=== PATIENT | male | born 1980 | race Caucasian/White ===

== ENCOUNTER → 2022-04-19 06:54 | Outpatient (CLI) | payer OTHER, SELFPAY | PROVIDERS: PCP Family Medicine; Visit Provider Nurse Practitioner Family | DX: Z87.891 Personal history of nicotine dependence (principal); I10 Essential (primary) hypertension; E78.1 Pure hyperglyceridemia; I63.9 Cerebral infarction, unspecified | CPT/HCPCS: 94762 ==

== ENCOUNTER → 2022-05-19 11:57 | Outpatient (CLI) | payer OTHER, SELFPAY | PROVIDERS: PCP Family Medicine; Visit Provider Nurse Practitioner Family | DX: I10 Essential (primary) hypertension (principal); R46.89 Other symptoms and signs involving appearance and behavior; I63.89 Other cerebral infarction | CPT/HCPCS: 93225; 93226 ==

== ENCOUNTER → 2022-05-23 08:46 | Outpatient (CLI) | payer OTHER, SELFPAY ==
[2022-05-23 09:26] LABS: Basophils # 0.2 K/mm3 (0-0.2); Basophils % 3.4 % (0.1-2.0); Eosinophils # 0.2 K/mm3 (0.0-0.4); Eosinophils % 2.6 % (0.1-12.0); Hematocrit 45.1 % (42.0-52.0); Hemoglobin 14.9 g/dL (14.1-18.0); Lymphocytes # 2.2 K/mm3 (0.7-4.5); Lymphocytes % 34.2 % (10-50); Mean Corpuscular Hemoglobin 29.1 pg (27.0-31.2); Mean Corpuscular Volume 88.1 fl (80-94); Mean Platelet Volume 9.1 fl (7.4-10.4); Monocytes # 0.5 K/mm3 (0.1-1.0); Monocytes % 8.6 % (1.7-9.3); Neutrophils # 3.2 K/mm3 (1.8-7.8); Neutrophils % 51.2 % (37.0-80.0); Platelet Count 255 K/mm3 (142-424); Red Blood Count 5.12 M/mm3 (4.60-6.20); White Blood Count 6.3 K/mm3 (4.8-10.8)
[2022-05-23 10:05] LABS: Alanine Aminotransferase 41 U/L (12-78); Albumin Level 4.7 g/dl (3.5-5.0); Albumin/Globulin Ratio 1.8 (1.1-1.8); Alkaline Phosphatase 47 U/L (38-126); Anion Gap 12.7 mEq/L (5-15); Aspartate Amino Transferase 40 U/L (17-59); Bilirubin,Total 1.1 mg/dl (0.2-1.3); Blood Urea Nitrogen 18 mg/dl (9-20); Calcium 9.7 mg/dl (8.4-10.2); Carbon Dioxide 28 mmol/L (22.0-30.0); Chloride 104 mmol/L (98-107); Chol/HDL Ratio 2.2 (1-3.5); Cholesterol 125 mg/dl (140-200); Estimated Glomerular Filt Rate 66 ml/min (>60); GFR (African American) 80 ML/MIN (>60); Globulin 2.6 g/dL (1.3-3.2); Glucose 94 mg/dl (74-100); HDL Cholesterol 58 mg/dl (40-60); Potassium 4.7 mmoL/L (3.5-5.1); Sodium 140 mmol/L (136-145); Total Protein,Serum 7.3 g/dl (6.3-8.2); Triglycerides 99 mg/dl (30-150); VLDL Cholesterol 20 mg/dL (0-40)
[2022-05-23 10:27] LABS: Direct LDL Cholesterol 30.71 mg/dL (100-129)
[2022-05-23 10:36] LABS: Thyroid Stimulating Hormone 1.97 uIU/mL (0.465-4.68)
[2022-05-23 11:11] LABS: Vitamin B12 955 pg/mL (239-931)
[2022-05-24 08:37] LABS: Homocyst(e)ine 18.7 umol/L (0.0-14.5)
== END ==
PROVIDERS: PCP Family Medicine; Visit Provider Nurse Practitioner Family
DX: E78.1 Pure hyperglyceridemia (principal); I10 Essential (primary) hypertension; I63.9 Cerebral infarction, unspecified; Z87.891 Personal history of nicotine dependence
CPT/HCPCS: 36415; 80053; 80061; 82607; 82746; 83090; 84443; 85025

== ENCOUNTER → 2022-06-09 11:41 | Outpatient (CLI) | payer OTHER, SELFPAY | PROVIDERS: PCP Family Medicine; Visit Provider Nurse Practitioner Family | DX: I10 Essential (primary) hypertension (principal); R46.89 Other symptoms and signs involving appearance and behavior; G93.40 Encephalopathy, unspecified; I63.9 Cerebral infarction, unspecified | CPT/HCPCS: 93270 ==

== ENCOUNTER → 2022-10-25 14:03 | Outpatient (CLI) | payer OTHER, SELFPAY ==
[2022-10-25 14:23] LABS: Basophils # 0.1 K/mm3 (0-0.2); Basophils % 0.9 % (0.1-2.0); Eosinophils # 0.4 K/mm3 (0.0-0.4); Eosinophils % 6.2 % (0.1-12.0); Hematocrit 44.2 % (42.0-52.0); Hemoglobin 14.8 g/dL (14.1-18.0); Lymphocytes % 34.6 % (10-50); Mean Corpuscular HGB Conc 33.4 g/dL (31.8-35.4); Mean Corpuscular Hemoglobin 29.6 pg (27.0-31.2); Mean Corpuscular Volume 88.6 fl (80-94); Mean Platelet Volume 8.6 fl (7.4-10.4); Monocytes # 0.6 K/mm3 (0.1-1.0); Monocytes % 9.9 % (1.7-9.3); Neutrophils # 2.7 K/mm3 (1.8-7.8); Neutrophils % 48.3 % (37.0-80.0); Platelet Count 236 K/mm3 (142-424); Red Blood Count 4.99 M/mm3 (4.60-6.20); Red Cell Distribution Width 13.2 % (11.5-17.5); White Blood Count 5.6 K/mm3 (4.8-10.8)
[2022-10-25 14:39] LABS: Ammonia 11 umol/L (9-30); INR 0.96 (0.9-1.1); Prothrombin Time 10.4 seconds (10.1-12.5)
[2022-10-25 15:33] LABS: Alanine Aminotransferase 38 U/L (12-78); Albumin Level 4.4 g/dl (3.5-5.0); Albumin/Globulin Ratio 1.8 (1.1-1.8); Alkaline Phosphatase 41 U/L (38-126); Anion Gap 16.2 mEq/L (5-15); Aspartate Amino Transferase 38 U/L (17-59); Bilirubin,Total 1.2 mg/dl (0.2-1.3); Blood Urea Nitrogen 18 mg/dl (9-20); Calcium 8.8 mg/dl (8.4-10.2); Carbon Dioxide 26 mmol/L (22.0-30.0); Chloride 101 mmol/L (98-107); Estimated Glomerular Filt Rate 81 ml/min (>60); GFR (African American) 98 ML/MIN (>60); Globulin 2.4 g/dL (1.3-3.2); Glucose 108 mg/dl (74-100); Potassium 4.2 mmoL/L (3.5-5.1); Sodium 139 mmol/L (136-145); Total Protein,Serum 6.8 g/dl (6.3-8.2)
== END ==
PROVIDERS: PCP Family Medicine; Visit Provider Nurse Practitioner Family
DX: R46.89 Other symptoms and signs involving appearance and behavior (principal); Z51.81 Encounter for therapeutic drug level monitoring
CPT/HCPCS: 36415; 80053; 82140; 85025; 85610

== ENCOUNTER → 2024-12-11 06:46 | Outpatient (CLI) | payer BC, SELFPAY ==
--- OUTSIDE RECORDS SUMMARY | 2024-10-17 06:00 | XMS_ITS | Encounter Summary ---
Author Organization [employer] ([place], [place], [place], [place]) Address [address] [place] [address] Care Team Providers Care Loom Doffer Name Role Phone Diego Perez MD Primary Care Provider [phone] Beth Montiel APRN Unavailable [phone] John Maya DO Unavailable [phone] Ernie Tsai MD Unavailable Reason for Visit * Reason Comments LOOP RECORDER Encounter Details Date Type Department Care Team (Late st Contact Info) Description 10/17/2024 6:00 AM EDT Clinical Support [facility] Electrophysiology [address] [place] [address] Ernie Tsai MD [address] [place] [address] [address] [place] [address] Encounter for adjustment or management of cardiac device (Primary Dx); Cryptogenic stroke (HCC); Implantable loop recorder present Social History Tobacco Use Types Packs/Day Years Used Date Smoking Tobacco: Former Cigarettes 1 10 Passive Smoke Exposure: Never Smokeless Tobacco: Never Alcohol Use Standard Drinks/Week Comments Yes 0 (1 standard drink = 0.6 oz pur e alcohol) socially Family and Community Support Answer Wade e Recorded Help with Day to Day Activities Not on file 06/16/2023 Feeling Lonely or Isolated Not on file 06/16 Educational Attainment Answer Date Lupillo rded Speak language other than Liberian at home Not on file 06/16/2023 Want help with school or training Not on file 06/16/2023 Substance Use Answer Date Recorded Used prescription meds for non-medical reasons N ot on file 06/16/2023 Used illegal drugs past 12 months Not on file 06/16/2023 Sex and Gender Information Value Date Recorded Sex Assigned at Male 12/01/2021 10:23 PM CDT Legal Sex Male 6:41 PM CDT Gender Identity Male 12/01/2021 10:23 PM CDT Sexual Orientation Not on file documented as of this encounter Plan of Treatment Upcoming Encounters Date Type Department Care Team (Late st Contact Info) Description 12/19/2024 10:45 AM EDT Office Visit [facility] Cardiology - [place] [address] [place] [address] John Maya [address] [place] [address] documented as of this encounter Visit Diagnoses Diagnosis Encounter for adjustment or management of cardiac device- Primary Cryptogenic stroke (HCC) Implantable loop recorder present documented in this encounter Care Teams Loom Doffer Relationship Specialty Start Date End Date Diego Perez MD [address] [place], [place] [id number] PCP - General Family Medicine 12/12/22 Beth Montiel, HIGHWAY MAINTENANCE CREW WORKER [address] [place] [address] Nurse Practitioner 12/12/22 John Maya DO [address] [place] [address] House Superintendent Cardiology 02/23/24 Ernie Tsai MD [address] [facility] [address] [place] [address] House Superintendent Electrophysiology 02/23/24 documented as of this encounter
--- OUTSIDE RECORDS SUMMARY | 2024-11-18 18:00 | XMS_ITS | Encounter Summary ---
Author Organization [employer] ([place], [place], [place], [place]) Address [address] [place] [address] Care Team Providers Care Quarry Plug And Feather Driller Name Role Phone Diego Perez MD Primary Care Provider [phone] Beth Montiel APRN Unavailable [phone] John Maya DO Unavailable [phone] Ernie Tsai MD Unavailable Reason for Visit * Reason Comments LOOP RECORDER Encounter Details Date Type Department Care Team (Late st Contact Info) Description 11/18/2024 6:00 PM EDT Clinical Support [facility] Electrophysiology [address] [place] [address] Ernie Tsai MD [address] [place] [address] [address] [place] [address] Encounter for adjustment or management [...] Date Lupillo rded Speak language other than [place] at home Not on file 06/16/2023 Want [...] Description 12/19/2024 10:45 AM EDT Office Visit [facility] Cardiology - [place] [address] [place] [address] John Maya [address] [place] [address] documented as of this encounter Visit Diagnoses Diagnosis Encounter for adjustment or management of cardiac device- Primary Cryptogenic stroke (HCC) Implantable loop recorder present documented in this encounter Care Teams Quarry Plug And Feather Driller Relationship Specialty Start Date End Date Diego Perez MD [address] [place], [place] [id number] PCP - General Family Medicine 12/12/22 Beth Montiel, WORKDAY MANAGER [address] [place] [address] Nurse Practitioner 12/12/22 John Maya DO [address] [place] [address] Tile And Marble Setter Cardiology 02/23/24 Ernie Tsai MD 1401 [facility] [address] [place] [address] Tile And Marble Setter Electrophysiology 02/23/24 documented as of this encounter
--- OUTSIDE RECORDS SUMMARY | 2024-12-11 06:48 | XMS_ITS | Encounter Summary ---
Author Organization [employer] ([place], [place], [place], [place]) Address [address] [place] [address] Care Team Providers Care Contact Representative Name Role Phone Diego Perez MD Primary Care Provider [phone] Diego Perez MD Primary Care Provider [phone] Beth Montiel APRN Unavailable [phone] John Maya DO Unavailable [phone] Ernie Tsai MD Unavailable Encounter Details Date Type Department Care Team (Late st Contact Info) Description 01/14/2019 Transcribed Document [facility] [place] [address] [place] [address] ProviderUmang MD [address] [place] [address] Social History Tobacco Use Types Packs/Day Years Used Date Smoking Tobacco: Never Assessed Sex and Gender Information Value Date Recorded Sex Assigned at Male 12/01/2021 10:23 PM CDT Legal Sex Male 6:41 PM CDT Gender Identity Male 12/01/2021 10:23 PM CDT Sexual Orientation Not on file documented as of this encounter Miscellaneous Notes * Cerner Conversion Note - Historical ProviderMD - 01/14/2019 1:32 PM CDT DATE OF PROCEDURE:01/14/2019 PREOPERATIVE DIAGNOSIS(ES): Right renal stone. POSTOPERATIVE DIAGNOSIS(ES): Right renal stone. PROCEDURE: Right extracorporeal shock wave lithotripsy. SURGEON: Truman Saez M.D. ANESTHESIA: General. BLOOD LOSS: None. COMPLICATIONS: None. SPECIMENS: None. OPERATIVE FINDINGS: Right renal stone with good fragmentation by ESWL. INDICATIONS FOR PROCEDURE: A 38-year-old male with right renal stone. He presents for definitive stone treatment by ESWL. DESCRIPTION OF PROCEDURE: Patient was correctly identified in preoperative holding area. Informed consent obtained after all risks and benefits were reviewed with the patient. He was taken to procedure room and positioned in supine position. All pressure points padded. Proper time-out procedure completed. Preoperative antibiotics being given. Anesthesia had been induced. He was repositioned over the lithotripter table to position the stone within the lithotripter focus using biplanar fluoroscopy. A total of 2400 shocks were administered using escalating voltage. Good fragmentation was identified by fluoroscopy intraoperatively. DISPOSITION: Patient tolerated the procedure well. He was taken to recovery room in stable condition. He was discharged home with instructions for outpatient followup. Truman Saez M.D. Dict: 01/14/2019 13:32:23 Trans: 01/14/2019 14:20:52 CC1: Truman Saez M.D. Electronically signed by Francisco [facility] Conversion Roll Examiner Cerner at 09/18/2022 6:17 PM CDT documented in this encounter Plan of Treatment Upcoming Encounters Date Type Department Care Team (Late st Contact Info) Description 12/19/2024 10:45 AM EDT Office Visit [facility] Cardiology [address] [address] John Maya DO [address] [place] [address] documented as of this encounter Visit Diagnoses Not on filedocumented in this encounter Care Teams Contact Representative Relationship Specialty Start Date End Date Diego Perez MD [address] [place] [address] PCP - General Family Medicine 04/04/22 12/11/22 Diego Perez MD [address] [place] [address] PCP - General Family Medicine 12/12/22 Beth Montiel, ADRIENNE [address] [place] [address] Nurse Practitioner 12/12/22 John Maya DO [address] [place] [address] Truck Bracer Cardiology 02/23/24 Ernie Tsai MD 14[address] [facility] [place] [address] Truck Bracer Electrophysiology 02/23/24 documented as of this encounter
--- OUTSIDE RECORDS SUMMARY | 2024-12-11 06:48 | XMS_ITS | Encounter Summary ---
Author Organization [employer] ([place], [place], [place], [place]) Address [address] [place] [address] Care Team Providers Care Executive Personal Assistant Name Role Phone Diego Perez MD Primary Care Provider [phone] Diego Perez MD Primary Care Provider [phone] Beth Montiel APRN Unavailable [phone] John Maya DO Unavailable [phone] Ernie Tsai MD Unavailable Encounter Details Date Type Department Care Team (Late st Contact Info) Description 01/14/2019 Transcribed Document [facility] Family Medicine [address] [place] [address] ProviderUmang MD [address] [place] [address] Social History Tobacco Use Types Packs/Day Years Used Date Smoking Tobacco: Never Assessed Sex and Gender Information Value Date Recorded Sex Assigned at Male 12/01/2021 10:23 PM CDT Legal Sex Male 6:41 PM CDT Gender Identity Male 12/01/2021 10:23 PM CDT Sexual Orientation Not on file documented as of this encounter Miscellaneous Notes * Cerner Conversion Note - Umang ProviderMD - 01/14/2019 10:09 AM CDT [facility] Main OR Preop Summary Primary Physician: JOHN ASHLEY MD Finalized Date/Time: 01/14/19 13:51:58 Pt. Name: ROBERT ROBERTSON Jose/Sex: 1980 Male Med Rec #: [id number] Physician: JOHN ASHLEY MD Financial #: [id number] Pt. Type: O Room/Bed: /7 Admit/Disch: 01/14/19 06:07:00 - Institution: [facility] PreOp Case Times Entry 1 In Preop 01/14/19 06:29:00 Ready for Holding n/a Room Patient Ready for 01/14/19 09:05:00 Surgery Patient Out of Preop 01/14/19 09:56:00 Patient Out of n/a Holding Room Last Modified By: Ellen Cr, Nurse Model Maker Plaster 01/14/19 13:51:55 [facility] PreOp Case Times Audit 01/14/19 13:51:55 Neurophysiology Tech: [email or web address] Modifier: [id number] <+> 1 Patient Out of Preop Finalized By: Ellen Cr, Nurse Director Cardiology Signatures Signed By: Ellen Cr Nurse Model Maker Plaster 01/14/19 13:51 Electronically signed by Francisco [facility] Conversion Nature Photographer Cerner at 09/18/2022 6:11 PM CDT documented in this encounter Plan of Treatment Upcoming Encounters Date Type Department Care Team (Late st Contact Info) Description 12/19/2024 10:45 AM EDT Office Visit [facility] Cardiology [address] [place] [address] [place] [address] [place] [address] documented as of this encounter Visit Diagnoses Not on filedocumented in this encounter Care Teams Executive Personal Assistant Relationship Specialty Start Date End Date Diego Perez MD [address] [place], [place] [address] PCP - General Family Medicine 04/04/22 12/11/22 Diego Perez MD [address] [place] [address] PCP - General Family Medicine 12/12/22 Beth Montiel, LONG LINE TEAMSTER [address] [place] [address] Nurse Practitioner 12/12/22 John Maya DO [address] [place] [address] Temperature Inspector Cardiology 02/23/24 Ernie Tsai MD [address] [place] [address] [address] [place] [address] Temperature Inspector Electrophysiology 02/23/24 documented as of this encounter
--- OUTSIDE RECORDS SUMMARY | 2024-12-11 06:48 | XMS_ITS | Encounter Summary ---
Author Organization [employer] ([place], [place], [place], [place]) Address [address] [place] [address] Care Team Providers Care General Expeditor Name Role Phone Diego Perez MD Primary Care Provider [phone] Diego Perez MD Primary Care Provider [phone] Beth Montiel APRN Unavailable [phone] John Maya DO Unavailable [phone] Ernie Tsai MD Unavailable Encounter Details Date Type Department Care Team (Late st Contact Info) Description 01/14/2019 Transcribed Document [facility] Family [place] [address] [place] [address] ProviderUmang MD [address] [place] [address] Social History Tobacco Use Types Packs/Day [...] Umang ProviderMD - 01/14/2019 10:09 AM CDT [facility] Main OR PACU Summary Primary Physician: JOHN ASHLEY MD Finalized Date/Time: 01/14/19 12:09:19 Pt. Name: ROBERT ROBERTSONZAIRA Garcia/Sex: 1980 Male Med Rec #: [id number] Physician: JOHN ASHLEY MD Financial #: [id number] Pt. Type: O Room/Bed: /7 Admit/Disch: 01/14/19 06:07:00 - Institution: [facility] Main OR PACU I Case Times Entry 1 In PACU I 01/14/19 11:20:00 Ready for PACU 01/14/19 12:08:00 Discharge Discharge from PACU 01/14/19 12:08:00 I Last Modified By: ALEXY RUEDA RN 01/14/19 12:09:10 [facility] Main OR PACU I Case Times Audit 01/14/19 12:09:10 Technician Automated Equipment: [id number] Modifier: [id number] <+> 1 Ready for PACU Discharge <+> 1 Discharge from PACU I Finalized By: ALEXY RUEDA RN Document Signatures Signed By: ALEXY RUEDA RN 01/14/19 12:09 Electronically signed by Francisco [facility] Conversion Handicapper [employer] Cerner at 09/18/2022 6:03 PM CDT documented in this encounter Plan of Treatment Upcoming Encounters Date Type Department Care Team (Late st Contact Info) Description 12/19/2024 10:45 AM EDT Office Visit [facility] Cardiology [address] [address] John Maya DO [address] [place] [address] documented as of this encounter Visit Diagnoses Not on filedocumented in this encounter Care Teams General Expeditor Relationship Specialty Start Date End Date Diego Perez MD [address] [place] [address] PCP - General Family Medicine 04/04/22 12/11/22 Diego Perez MD [address] [place] [address] PCP - General Family Medicine 12/12/22 Beth Montiel APRN [address] [place] [address] Nurse Practitioner 12/12/22 John Maya DO [address] [place] [address] Doctor Of Osteopathy Cardiology 02/23/24 Ernie Tsai MD [address] [place] [address] [address] [place] [address] Doctor Of Osteopathy Electrophysiology 02/23/24 documented as of this encounter
--- OUTSIDE RECORDS SUMMARY | 2024-12-11 06:48 | XMS_ITS | Encounter Summary ---
Author Organization [employer] ([place], [place], [place], [place]) Address [address] [place] [address] Care Team Providers Care Shell Sorter Name Role Phone Diego Perez MD Primary Care Provider [phone] Diego Perez MD Primary Care Provider [phone] Beth Montiel APRN Unavailable [phone] John Maya DO Unavailable [phone] Ernie Tsai MD Unavailable Encounter Details Date Type Department Care Team (Late st Contact Info) Description 01/14/2019 Transcribed Document [facility] Family Medicine [address] [place] [address] ProviderUmang MD [address] [place] [address] Social History Tobacco Use Types Packs/Day Years Used Date Smoking Tobacco: Never Assessed Sex and Gender Information Value Date Recorded Sex Assigned at Male 12/01/2021 10:23 PM CDT Legal Sex Male 6:41 PM CDT Gender Identity Male 12/01/2021 10:23 PM CDT Sexual Orientation Not on file documented as of this encounter Miscellaneous Notes * Cerner Conversion Note - Historical ProviderMD - 01/14/2019 8:25 AM CDT PAT Adult Entered On: 01/14/2019 8:28 EDT Performed On: 01/14/2019 8:25 EDT by SHANTA LU Height and Weight, Clinical Dosing Height Source : Measured Height Entry Format : [place] Height, Feet : 6 ft(Converted to: 183 cm, 72 Inch) Height, Inches : 0 Inch(Converted to: 0 ft 0 Inch, 0.00 cm) Clinical Height : 182.88 cm Weight Source : Standing scale Weight Entry Format : [place] Clinical Dosing Weight : 87.27 kg Weight, Pounds : 192 lb Body Surface Area (BSA) : 2.1 m2 Body Mass Index : 26.1 kg/m2 (HI) [place] Body Weight : 77 kg SHANTA LU - 01/14/2019 8:25 EDT Health Histories Smoking Status : Former smoker, quit more than 30 days ago Smokeless Tobacco Status : Never SHANTA LU - 01/14/2019 8:25 EDT Social History (As Of: 01/14/2019 08:28:09 EDT) Tobacco: Years of Use: 10. Packs/Tins Daily: 1. Last Used: 2003. (Last Updated: 01/14/2019 08:18:50 EDT by SHANTA LU) Alcohol: Alcohol Use History Yes. Days/Week: 1. # Drinks/Day: 1. Alcohol Use Frequency Weekly. (Last Updated: 01/14/2019 08:19:08 EDT by SHANTA LU) Substance Abuse: Drug Use Hx: No. Use in Last 12 Months: No. (Last Updated: 01/14/2019 08:19:14 EDT by SHANTA LU) Infectious Disease History Infectious Disease History : Chicken pox/Shingles Fever/Chills Last 48 Hours : No Travel To Regions with Travel Advisories : No Travel Outside [place] Within Last 30 Days : No Contact With Traveler to Advisory Region : No Tuberculosis Symptoms : None SHANTA LU - 01/14/2019 8:25 EDT Anesthesia/Transfusion History Family History of Anesthesia Reaction : Prior transfusion without reaction Transfusion History : Prior anesthesia without reaction Family History of Anesthesia Reaction : None SHANTA LU - 01/14/2019 8:25 EDT Functional Assessment Functional ADL Evaluation Index EBN Bathing : Independent (2) Dressing : Independent (2) Toileting : Independent (2) Transferring Bed or Chair : Independent (2) Continence : Independent (2) Feeding : Independent (2) SHANTA LU 01/14/2019 8:33 EDT ADL Index Score : 12 LAUREBRUCE SHANTA 01/14/2019 8:33 EDT Advance Directive Patient has Advance Directive *Q : No, patient refuses Advance Directive information JACQUIEFELTON SHANTA 01/14/2019 8:33 EDT Spiritual/Cultural Needs Any Spiritual/Cultural Needs or Requests : No SHANTA LU 01/14/2019 8:33 EDT Psychosocial History Do You Have a History of the Following? : Patient denies history Currently in Unsafe Situation : No Tried to Harm Yourself in the Past? : No Thoughts of Harming/Killing Yourself : No SHANTA LU 01/14/2019 8:33 EDT Teaching/Learning Assessment Barriers To Learning : None evident Readiness to Learn : Cooperative Learning Style Preferences Patient : Printed materials JACQUIEFELTON SHANTA 01/14/2019 8:33 EDT General Info Arrived From : Home Mode of Arrival on Unit : Ambulatory Legal Guardian : Mother Support Person/Pt Rep Contact Information : deejay hinds [phone] / buffy chavez brother in law [phone] Want Family/Rep/Phys Notified of Admit : No Emergency Contact #1 : - Emergency Contact #1 Phone Number : - Emergency Contact #1 Relationship : - Emergency Contact #2 : - Emergency Contact #2 Phone Number : - Emergency Contact #2 Relationship : - Primary Language : Mongolian Communication Barrier : None AJCQUIEFELTON SHANTA 01/14/2019 8:33 EDT Paul Scale Paul Sensory Perception : No impairment Paul Moisture : Rarely moist Paul Activity : Walks frequently Paul Mobility : No limitation Paul Nutrition : Excellent Paul Friction and Shear : No apparent problem Paul Score : 23 SHANTA LU 01/14/2019 8:33 EDT Sleep Apnea Risk Assmt Hx of Obstructive Sleep Apnea Diagnosis : No Snore Loudly : Yes Tired, Fatigued, or Sleepy During Day : No Observed Stopping Breathing During Sleep : No Have/Are Being Treated for Hypertension : Yes BMI Greater Than 35 kg/m2 : No Age over 50 Years Old : No Neck Circumference Greater Than 40 cm : No Gender Male : Yes STOP-BANG Sleep Apnea Risk Level Score : 3 SHANTA LU 01/14/2019 8:33 EDT documented in this encounter Plan of Treatment Upcoming Encounters Date Type Department Care Team (Late st Contact Info) Description 12/19/2024 10:45 AM EDT Office Visit [facility] Cardiology [facility] [address] [place] [id number] John Maya DO [address] [place], [place] [id number] documented as of this encounter Visit Diagnoses Not on filedocumented in this encounter Care Teams Shell Sorter Relationship Specialty Start Date End Date Diego Perez MD [address] [place] [address] PCP - General Family Medicine 04/04/22 12/11/22 Diego Perez MD [address] [place] [address] PCP - General Family Medicine 12/12/22 Beth Montiel, APPRENTICE ELECTRICIAN [address] [place] [address] Nurse Practitioner 12/12/22 John Maya DO [address] [place] [address] Beef Pluck Trimmer Cardiology 02/23/24 [place] [address] [place] [address] [address] [place] [address] Beef Pluck Trimmer Electrophysiology 02/23/24 documented as of this encounter
--- OUTSIDE RECORDS SUMMARY | 2024-12-11 06:48 | XMS_ITS | Referral Summary ---
Author Organization [employer] ([place], [place], [place], [place]) Address [address] [place] [address] Care Team Providers Care Tipple Engineer Name Role Phone Diego Perez MD Primary Care Provider [phone] Beth Montiel APRN Unavailable John Maya DO Unavailable [phone] Ernie Tsai MD Unavailable Encounters Date Type Department Care Team Description 11/18/2024 6:00 PM EDT Clinical Support [facility] Electrophysiology [address] [place] [phone] Ernie Tsai MD Encounter for adjustment or management of cardiac device (Primary Dx); Cryptogenic stroke (HCC); Implantable loop recorder present 10/17/2024 6:00 AM EDT Clinical Support [facility] Electrophysiology [address] [place] [phone] Ernie Tsai MD Encounter for adjustment or management of cardiac device (Primary Dx); Cryptogenic stroke (HCC); Implantable loop recorder present 09/16/2024 5:00 AM EDT Clinical Support [facility] Electrophysiology [address] [place] [phone] Reji Lindquist MD Encounter for adjustment or management of cardiac device (Primary Dx); Cryptogenic stroke (HCC); Implantable loop recorder present from Last 3 Months Allergies Active Allergy Reactions Criticality Noted Date Comments Ciprofloxacin 07/13/2022 Hydrocodone-Acetaminophen 04/04/2022 Medications fenofibrate (TRIGLIDE,LOFIBR A) 160 MG tablet Take 1 tablet (160 mg total) by mouth daily. Active omega-3 fatty acids-fish oil 340-1,000 mg Cap per capsule Take 2 capsules (2 g total) by mouth daily. Active cetirizine (ZyrTEC) 10 MG tablet Take 1 tablet (10 mg total) by mouth every evening. Active aspirin 81 MG EC tabletIndication s:Hypertension, unspecified type,Numbness and tingling in left arm Take 1 tablet (81 mg total) by mouth daily. Active propranoloL (INDERAL) 40 MG tablet Take 1 tablet (40 mg total) by mouth 2 (two) times daily. Active DULoxetine (CYMBALTA) 60 MG capsule Take 1 capsule (60 mg total) by mouth daily. Active multivitamin per tablet Take 1 tablet by mouth daily. Active cholecalciferol, vitamin D3, 25 mcg (1,000 unit) capsule Take 1 capsule (1,000 Units total) by mouth daily. Active Active Problems Problem Noted Date Diagnosed Date Encounter for adjustment or management of cardia c device 07/09/2024 Encounter for adjustment or management of cardia c device 06/20/2024 Encounter for adjustment or management of cardia c device 06/20/2024 Cryptogenic stroke 11/02/2023 Implantable loop recorder present 11/02/2023 HTN (hypertension) 07/13/2022 Resolved Problems Problem Noted Date Diagnosed Date Resolved Date Nonepileptic episode 08/04/2022 024 Abnormal EEG 08/04/2022 11/02/2023 Complex partial seizure with impairment of consciousness 08/02/2022 08/04/2022 At risk for sleep apnea 07/13/202210/05 High triglycerides 07/13/2022 Renal stones 07/13/2022 11/02/2023 Immunizations Name Administration Dates Next Due Covid-19 Vaccine MRNA (PF) 1 8yr+ (Moderna)([id number]) 05/17/2021,09/25/2020,08/25/2020 Social History Tobacco Use Types Packs/Day Years Used Date Smoking Tobacco: Former Cigarettes 1 10 Passive Smoke Exposure: Never Smokeless Tobacco: Never Tobacco Cessation:Counseling Given: Not Answered Alcohol Use Standard Drinks/Week Comments Yes 0 (1 standard drink = 0.6 oz pur e alcohol) socially Family and Community Support Answer Wade e Recorded Help with Day to Day Activities Not on file 06/16/2023 Feeling Lonely or Isolated Not on file 06/16 Educational Attainment Answer Date Lupillo rded Speak language other than Maltese at home Not on file 06/16/2023 Want [...] PM CDT Sexual Orientation Not on file Last Filed Vital Signs Vital Sign Reading Time Taken Comments Blood Pressure 124/90 12/21/2023 10:20 AM EDT Pulse 81 12/21/2023 10:20 AM EDT Temperature 36.7 C (98 F) 01/18/2023 9:09 AM EDT Respiratory Rate 20 08/04/2022 6:10 AM EST Oxygen Saturation 98% 02/16/2023 10:16 AM EDT Inhaled Oxygen Concentration - - Weight 97.1 kg (214 lb) 12/21/2023 10:20 AM EDT Height 182.9 cm (6') 12/21/2023 10:20 AM EDT Body Mass Index 29.02 12/21/2023 10:20 AM EDT Plan of Treatment Upcoming Encounters Date Type Department Care Team (Late st Contact Info) Description 12/19/2024 10:45 AM EDT Office Visit [facility] Cardiology [address] [phone] John Maya DO [address] [place] [address] Medical Devices Implanted Type Area Patient Care Associate Device Identifier Shelf Expiration Date Model / Serial / Lot Loop Recorder-2022 Implanted:01/03 by Ernie Tsai MD (Quantity not on file) LOOP RECORDER [employer] LINQ 2 / [id number] / Insurance BLUE CROSS/BLUE SHIELD Advance Directives For more information, please contact: [phone] Documents on File Type Date Recorded Patient Director Of Managed Services Expl anation Advance Directives and Livin g Will 08/02/2022 6:59 AM * Full Code (Latest Code Status on File) Date Activated Date Inactivated Comments 01/17/2023 10:22 PM 2023 4:27 AM * Full Code Date Activated Date Inactivated Comments 08/02/2022 11:55 AM 08/04/2022 3:16 PM Care Teams Tipple Engineer Relationship Specialty Start Date End Date Diego Perez MD [address] [place] [address] [place] [address] PCP - General Family Medicine 12/12/22 Beth Montiel, COMMUNITY DEVELOPMENT TECHNICIAN [address] [place] [address] Nurse Practitioner 12/12/22 John Maya DO [address] [place] [address] Cold Saw Operator Cardiology 02/23/24 [place] [address] [place] [address] Cold Saw Operator Electrophysiology 02/23/24
--- OUTSIDE RECORDS SUMMARY | 2024-12-11 06:48 | XMS_ITS | Encounter Summary ---
Author Organization [employer] ([place], [place], [place], [place]) Address [address] [place] [address] Care Team Providers Care Oil Pipe Inspector Name Role Phone Diego Perez MD Primary Care Provider [phone] Diego Perez MD Primary Care Provider [phone] Beth Montiel APRN Unavailable [phone] John Maya DO Unavailable [phone] Ernie Tsai MD Unavailable Encounter Details Date Type Department Care Team (Late st Contact Info) Description 01/14/2019 Transcribed Document [facility] Family Medicine [address] [place] [address] ProviderUmang MD [address] [place] [address] Social History Tobacco Use Types Packs/Day [...] Umang ProviderMD - 01/14/2019 10:09 AM CDT [facility] Main OR PostOp Summary Primary Physician: JOHN ASHLEY MD Finalized Date/Time: 01/14/19 14:05:07 Pt. Name: ROBERT ROBERTSONZAIRA Garcia/Sex: 1980 Male Med Rec #: [id number] Physician: JOHN ASHLEY MD Financial #: [id number] Pt. Type: O Room/Bed: / Admit/Disch: 01/14/19 06:07:00 - Institution: [facility] Main OR PostOp Case Times Entry 1 In PACU II 01/14/19 12:14:00 Ready for PACU II 01/14/19 14:04:00 Discharge Discharge from PACU 01/14/19 14:04:00 II Last Modified By: ABILIO THORPE RN 01/14/19 14:04:45 [facility] Main OR PostOp Case Times Audit 01/14/19 14:04:45 Preflight Inspector: COILP Modifier: COILP <+> 1 Ready for PACU II Discharge <+> 1 Discharge from PACU II Finalized By: BAILIO THORPE RN Document Signatures Signed By: ABILIO THORPE RN 01/14/19 14:05 Electronically signed by [facility] Conversion Sawmill Or Timber Yard Worker Cerner at 09/18/2022 5:58 PM CDT documented in this encounter Plan of Treatment Upcoming Encounters Date Type Department Care Team (Late st Contact Info) Description 12/19/2024 10:45 AM EDT Office Visit [facility] Cardiology [address] [phone] John Maya DO [address] [place] [address] documented as of this encounter Visit Diagnoses Not on filedocumented in this encounter Care Teams Oil Pipe Inspector Relationship Specialty Start Date End Date Diego Perez MD [address] [place] [address] PCP - General Family Medicine 04/04/22 12/11/22 Diego Perez MD [address] [place] [address] PCP - General Family Medicine 12/12/22 Beth Montiel APRN [address] [place] [phone] Nurse Practitioner 12/12/22 John Maya DO [address] [place] [address] Char Filter Operator Helper Cardiology 02/23/24 Ernie Tsai MD [address] [place] [address] [place] [address] Char Filter Operator Helper Electrophysiology 02/23/24 documented as of this encounter
--- OUTSIDE RECORDS SUMMARY | 2024-12-11 06:48 | XMS_ITS | Encounter Summary ---
Author Organization [employer] ([place], [place], [place], [place]) Address [address] [place] [address] Care Team Providers Care Food Tray Assembler Name Role Phone Diego Perez MD Primary Care Provider [phone] Diego Perez MD Primary Care Provider [phone] Beth Montiel APRN Unavailable [phone] John Maya DO Unavailable [phone] Ernie Tsai MD Unavailable Encounter Details Date Type Department Care Team (Late st Contact Info) Description 01/14/2019 Transcribed Document [facility] Family Medicine [address] [place] [address] ProviderUmang MD [address] [place] [address] Social History Tobacco Use Types Packs/Day Years Used Date Smoking Tobacco: Never Assessed Sex and Gender Information Value Date Recorded Sex Assigned at Male 12/01/2021 10:23 PM CDT Legal Sex Male 6:41 PM CDT Gender Identity Male 12/01/2021 10:23 PM CDT Sexual Orientation Not on file documented as of this encounter Miscellaneous Notes * Cerner Conversion Note - Historical ProviderMD - 01/14/2019 7:33 AM CDT Patient: ROBERT ROBERTSON Age: 38 years Sex: Male : 1980 Associated Diagnoses: None Author: COMERELINA APRN Chief Complaint R renal stone Review of Systems ROS reviewed as documented in chart no change since last seen by surgeon Health Status Allergies: Allergic Reactions (Selected) Severity Not Documented Acetaminophen-HYDROcodone- No reactions were documented. , No qualifying data available Current medications: (Selected) Inpatient Medications Ordered Levaquin: 500 mg, 100 mL, 100 mL/Hr, IV Piggyback, 1-Time Normal Saline Flush: 10 mL, IV Push, On-CALL, PRN: Other (See Comment) Normal Saline Flush: 10 mL, IV Push, Q12H Documented Medications Documented Fish Oil: 2,000 mg, Oral, Daily, 0 Refill(s) Vitamin D3: 5,000 Int Units, Oral, Daily, 0 Refill(s) fenofibrate: 160 mg, Oral, Daily, 0 Refill(s) multivitamin: 1 Tab, Oral, Daily, 0 Refill(s) propranolol: 10 mg, Oral, BID, 0 Refill(s) , Home Medications (5) Active fenofibrate 160 mg, Oral, Daily Fish Oil 2,000 mg, Oral, Daily multivitamin 1 Tab, Oral, Daily propranolol 10 mg, Oral, BID Vitamin D3 5,000 Int Units, Oral, Daily , Medications (3) Active Scheduled: (2) #NaCl 0.9% *FLUSH* inj 10 mL 10 mL, IV Push, Q12H levofloxacin/D5w *PREMIX* 500 mg 100 mL, IV Piggyback, 1-Time Continuous: (0) PRN: (1) #NaCl 0.9% *FLUSH* inj 10 mL 10 mL, IV Push, On-CALL Problem list: Active Problems (3) High triglycerides HTN (hypertension) Renal stones , R renal stone Histories Past Medical History: No active or resolved past medical history items have been selected or recorded. Family History: No family history items have been selected or recorded. Procedure history: No active procedure history items have been selected or recorded. Social History Social & Psychosocial Habits Alcohol 01/14/2019 Alcohol Use History, Social Habits Yes Days Per Week of Alcohol Use 1 Number of Drinks per Day 1 Alcohol Use Frequency Weekly Substance Abuse 01/14/2019 Recreational Drug Use History No Recreational Drug Use Last 12 Months No Tobacco 01/14/2019 Years of Tobacco Use 10 Packs/Tins Daily 1 Month Tobacco Last Used 2003 . Physical Examination VS/Measurements No qualifying data available General: Alert and oriented, No acute distress. Eye: Pupils are equal, round and reactive to light, Extraocular movements are intact. HENT: Normocephalic, Normal hearing. Neck: Supple, Non-tender. Respiratory: Lungs are clear to auscultation, Respirations are non-labored. Cardiovascular: Normal rate, Regular rhythm, No murmur, No gallop, No edema. Gastrointestinal: Soft, Non-tender. Genitourinary: No costovertebral angle tenderness. Lymphatics: No lymphadenopathy neck, axilla, groin. Musculoskeletal: Normal range of motion, Normal strength. Integumentary: Warm, Dry, [place]. Neurologic: Alert, Oriented. Psychiatric: Cooperative, Appropriate mood & affect. Review / Management Results review: No qualifying data available . Impression and Plan Condition: Stable. documented in this encounter Plan of Treatment Upcoming Encounters Date Type Department Care Team (Late st Contact Info) Description 12/19/2024 10:45 AM EDT Office Visit [facility] Cardiology [address] [phone] John Maya DO [address] [place] [address] documented as of this encounter Visit Diagnoses Not on filedocumented in this encounter Care Teams Food Tray Assembler Relationship Specialty Start Date End Date Diego Perez MD [address] [place] [address] PCP - General Family Medicine 04/04/22 12/11/22 Diego Perez MD [address] [place] [address] PCP - General Family Medicine 12/12/22 Beth Montiel, ADRIENNE [address] [place] [address] Nurse Practitioner 12/12/22 John Maya DO [address] [place] [address] Biofuels Processing Technician Cardiology 02/23/24 Ernie Tsai MD [address] [place] [address] [address] Biofuels Processing Technician Electrophysiology 02/23/24 documented as of this encounter
--- OUTSIDE RECORDS SUMMARY | 2024-12-11 06:48 | XMS_ITS | Encounter Summary ---
Author Organization [employer] ([place], [place], [place], [place]) Address [address] [place] [address] Care Team Providers Care Hospital Cook Name Role Phone Diego Perez MD Primary Care Provider Diego Perez MD Primary Care Provider [phone] Beth Montiel APRN Unavailable [phone] John Maya DO Unavailable [phone] Ernie Tsai MD Unavailable Encounter Details Date Type Department Care Team (Late st Contact Info) Description 01/14/2019 Transcribed Document [facility] [place] [address] [place] [address] ProviderUmang MD [address] [place] [address] Social History Tobacco Use Types Packs/Day [...] Umang ProviderMD - 01/14/2019 10:09 AM CDT [facility] Main OR IntraOp Summary Primary Physician: JOHN ASHLEY MD Finalized Date/Time: 01/15/19 13:16:26 Pt. Name: ROBERT ROBERTSONZAIRA Garcia/Sex: 1980 Male Med Rec #: [id number] Physician: JOHN ASHLEY MD Financial #: [id number] Pt. Type: O Room/Bed: / Admit/Disch: 01/14/19 06:07:00 - 01/14/19 14:00:00 Institution: [facility] IntraOp Case Attendance Entry 1 Entry 2 Entry 3 Case Attendee JOHN ASHLEY MD STONER, BRETT, Crna WILSON, MATTHEW L, MD Role Performed Surgeon/Proceduralist, ELECTRONIC INSTALLER/Nurse Enroller Anesthesiologist First Time In 01/14/19 10:00:00 01/14/19 10:00:00 01/14/19 10:00:00 Time Out 01/14/19 11:17:00 01/14/19 11:17:00 01/14/19 11:17:00 Procedure Extracorporeal Extracorporeal Extracorporeal Shockwave Lithotripsy Shockwave Lithotripsy Shockwave Lithotripsy Other Attendee SUPERVISIOR Superficial Wound JOHN ASHLEY MD Closed By: Last Modified By: Alicia Richter, Alicia Morrison RN Parker, Katherine, RN 01/14/19 11:21:00 01/14/19 11:21:00 01/14/19 11:21:00 Entry 4 Entry 5 Entry 6 Case Attendee Alicia Richter, Duane Hernandez HEATHER, MD Role Performed Orthodontist, [employer] Front Desk Clerk Anesthesiologist Time In 01/14/19 10:00:00 01/14/19 10:00:00 01/14/19 11:08:00 Time Out 01/14/19 11:17:00 01/14/19 11:17:00 01/14/19 11:17:00 Procedure Extracorporeal Extracorporeal Extracorporeal Shockwave Lithotripsy Shockwave Lithotripsy Shockwave Lithotripsy Other Attendee RELIEF Superficial Wound Closed By: Last Modified By: Alicia Richter RN Parker, Katherine, RN Parker, Katherine, RN 01/14/19 11:21:00 01/14/19 11:21:00 01/14/19 11:21:00 [facility] IntraOp Case Attendance Audit 01/14/19 11:21:00 Radiation / Chemistry Technician: ASHWIN Modifier: PARKEK 1 <+> Time Out 1 <*> Procedure Extracorporeal Shockwave Lithotripsy 2 <+> Time Out 2 <*> Procedure Extracorporeal Shockwave Lithotripsy 3 <+> Time Out 3 <*> Procedure Extracorporeal Shockwave Lithotripsy 4 <+> Time Out 4 <*> Procedure Extracorporeal Shockwave Lithotripsy 5 <+> Time Out 5 <*> Procedure Extracorporeal Shockwave Lithotripsy 6 <+> Time Out 6 <*> Procedure Extracorporeal Shockwave Lithotripsy 01/14/19 11:13:02 Radiation / Chemistry Technician: ASHWIN Modifier: TEODOROEK 1 <*> Procedure Extracorporeal Shockwave Lithotripsy 2 <+> Time In 2 <*> Procedure Extracorporeal Shockwave Lithotripsy 3 <+> Time In 3 <*> Procedure Extracorporeal Shockwave Lithotripsy 4 <+> Time In 4 <*> Procedure Extracorporeal Shockwave Lithotripsy 5 <+> Time In 5 <*> Procedure Extracorporeal Shockwave Lithotripsy <+> 6 Case Attendee <+> 6 Role Performed <+> 6 Time In <+> 6 Procedure <+> 6 Other Attendee [facility] IntraOp Case Times Entry 1 Patient In Room Time 01/14/19 10:00:00 Out Room Time 01/14/19 11:17:00 Anesthesia Start Time 01/14/19 10:00:00 Stop Time 01/14/19 11:17:00 Surgery / Procedure Times Start Time 01/14/19 10:09:00 Stop Time 01/14/19 11:12:00 Last Modified By: Alicia Richter RN 01/14/19 11:20:58 [facility] IntraOp Case Times Audit 01/14/19 11:20:58 Radiation / Chemistry Technician: ASHWIN Modifier: TEODOROEK <+> 1 Out Room Time <+> 1 Stop Time 01/14/19 11:13:09 Radiation / Chemistry Technician: ASHWIN Modifier: TEODOROEK <+> 1 Stop Time [facility] IntraOp Communication Entry 1 Communication To Family/Significant other Comment START OF PROCEDURE Communication By Alicia Richter RN Date and Time 01/14/19 10:11:00 Last Modified By: Alicia Richter RN 01/14/19 10:18:33 [facility] IntraOp Departure from OR Entry 1 Integumentary Assessment Integumentary WDL Assessment WDL Transfer/Handoff Transfer to PACU Phase I Handoff Method Bedside/Face to face, Phone call Handoff Reported to ATA WATTS RN Post-op Transport Stretcher/Gurney Via Patient Transport GAMALIEL NICOLE Crna, Accompanied by Alicia Richter RN Last Modified By: Alicia Richter RN 01/14/19 10:19:22 [facility] IntraOp Fire Risk Assessment Entry 1 Fire Info Surgical Site or 0- No Incision Above the Xyphoid Open O2 Source 0- No (Mask or Cannula) Available Ignition 0- No (ESU, Laser, Light Source) Fire Risk 0 Assessment Score Fire Score Fire Risk Yes Assessment Complete Fire Risk Alicia Richter RN Assessment Verified By Fire Risk 01/14/19 10:02:00 Assessment Verified Date/Time Fire Risk Standard Fire Yes Safety Precautions Followed Last Modified By: Alicia Richter RN 01/14/19 10:19:40 [facility] IntraOp General Case Architect Manager 1 Case Information OR OR 19 [facility] Case Level 1 Room Verified Yes Wound Class II - Clean-Contaminated Specialty SN Urology Anesthesia Type General ASA Class 2 Diagnosis Preop Diagnosis RIGHT RENAL STONE Postop Same As Preop Yes Postop Diagnosis RIGHT RENAL STONE Last Modified By: Alicia Richter RN 01/14/19 10:20:11 [facility] IntraOp Intraoperative Assessment Entry 1 Valid History / Yes Physical in Chart Preoperative Yes Checklist Reviewed/Evaluated Allergies Reviewed Yes Patient is Latex No Sensitive Isolation Not applicable Precautions Noted Level of WDL Consciousness (WDL = Alert, Oriented to Person, Place, and Time) Skin Assessment No Verified Present Upon IVs Arrival to OR Last Modified By: Alicia Richter RN 01/14/19 10:20:20 [facility] IntraOp Intraoperative Equipment Entry 1 Type Monitoring Equipment Equipment Other ID Number [id number] Intraop Monitoring Electrocardiogram Three lead placement (ECG) Electrode Placement Blood Pressure Non-Invasive BP Device Source Antiembolic Devices Antiembolic Devices Sequential compression device, knee high Antiembolic Device Bilateral Location Antiembolic Device 40 mmHg Setting Scopes Photo/Video Documentation Photo No Video No Intraop Equipment Sequential compression Comment devices on and in operation prior to induction. Last Modified By: Alicia Richter RN 01/14/19 10:21:08 [facility] IntraOp Patient Positioning Entry 1 Procedure Extracorporeal Shockwave Lithotripsy Body Position Supine Left Arm Position Resting at side Right Arm Position Resting at side Left Leg Position Uncrossed, parallel Right Leg Position Uncrossed, parallel Position Comments Supine with legs elevated on wedge and pillow . Feet Uncrossed Yes Pressure Points Yes Checked Positioning Devices Head Rest, Pad, Elbow, Pad, Elbow, Wedge, Safety Strap, Chest, Table, Cysto, Pillows Positioned By GAMALIEL NICOLE Crna, Duane Mittal, Alicia Richter RN, JOHN ASHLEY MD Position Verified Positioning Yes Verified by Anesthesia Positioning Yes Verified by Surgeon Last Modified By: Alicia Richter RN 01/14/19 10:21:48 [facility] IntraOp Sign In Entry 1 Patient, Site, Yes Procedure Identified Surgical Consent Yes Confirmed Relevant Surgical Yes Documents Available Surgical Site Yes Marked by person performing procedure Anesthesia Machine Yes Check Completed Medication Checks Yes Completed Allergies No Airway Difficult Yes Airway/Aspiration Risk Difficult Yes Airway/Aspiration Intervention Equipment Available Blood Loss Risk No Blood Loss Yes Intervention Equipment Prepared and Ready Blood Identifiers Not applicable Verified Per Policy Hypothermia Risk Yes Warming Measures Yes Taken Last Modified By: Alicia Richter RN 01/14/19 10:22:00 [facility] IntraOp Sign Out Entry 1 RN Confirmation Surgical Yes Procedure(s) Identified Instrument, Sponge N/A and Sharps Counts Correct/Documented Equipment Problems N/A Documented Specimen Labeled N/A Correctly Urinary Catheter N/A Documented in IView Bhatti Patient Yes Recovery Concerns Reviewed with Anesthesia Provider, Surgeon and RN Bhatti Patient Yes Management Concerns Reviewed with Anesthesia Provider, Surgeon and RN Safety Checklist Yes Elements Complete? RN Sign Out Alicia Richter RN Signature RN Sign Out 01/14/19 11:12:00 Signature Date/Time Plan of Care Outcome - Fire Risk OUTCOME STATEMENT: Goal met Patient is free from injury related to surgical fire Plan of Care Outcome - Pt Positioning OUTCOME STATEMENT: Goal met Absence of signs and symptoms of positioning injury. Plan of Care Outcome - Skin Prep OUTCOME STATEMENT: Goal met Intraoperative care is consistent with measures to prevent infection Plan of Care Outcome - Xray/Images OUTCOME STATEMENT: Goal met Absence of observable signs or symptoms of radiation injury Plan of Care Outcome - Counts OUTCOME STATEMENT: Goal met Absence of signs and symptoms of injury related to extraneous objects Last Modified By: Alicia Richter RN 01/14/19 11:13:17 [facility] IntraOp Sign Out Audit 01/14/19 11:13:17 Radiation / Chemistry Technician: TEODOROAN Modifier: PARKEK <+> 1 RN Sign Out Signature Date/Time [facility] IntraOp Surgical Procedures Entry 1 Procedure Extracorporeal Shockwave Lithotripsy Additional (RT ESWL) Procedure Description Primary Procedure Yes Primary Surgeon JOHN ASHLEY MD Start 01/14/19 10:09:00 Stop 01/14/19 11:12:00 Anesthesia Type General Specialty SN Urology Wound Class II - Clean-Contaminated Last Modified By: Alicia Richter RN 01/14/19 11:13:21 [facility] IntraOp Surgical Procedures Audit 01/14/19 11:13:21 Radiation / Chemistry Technician: TEODOROAN Modifier: TEODOROEK <+> 1 Stop [facility] IntraOp Temp Regulation Devices Entry 1 Temp Regulation Temperature Forced Air Warming Regulation Device device, Room temperature, Warm blankets Temperature Upper body Regulation Site Temperature JERO HUGGER AVAILABLE Regulation Comment TO ANESTHESIA Last Modified By: Alicia Richter RN 01/14/19 10:23:17 [facility] IntraOP Time Out Entry 1 Procedure to be Extracorporeal Performed Shockwave Lithotripsy Time Out Time Out Pause Time 01/14/19 10:09:00 All activity Yes suspended (unless life threatening emergency) Team Verbally Correct patient Confirms Information identity, Correct side and site are marked, Consent form is present and accurate, Agreement on the procedure to be done, Correct patient position, Relevant images/results properly labeled/appropriately displayed, Confirm antibiotics have been administered, Performed in location of procedure after prepped/draped Antibiotic Yes Prophylaxis Administered Or In Progress Within the Last 60 Minutes Beta Timothy Yes Administered Venous Yes Thromboembolism Prophylaxis Required Anticipated Critical Events Surgeon None expected Anesthesia Provider None expected Nursing Assures Equipment concerns or issues, Other Essential Imaging Yes Labeled and Displayed Last Modified By: Alicia Richter RN 01/14/19 11:12:23 Case Comments <None> Finalized By: REGGIE SHANKAR Document Signatures Signed By: Alicia Richter RN 01/14/19 11:21 REGGIE SHANKAR 01/15/19 13:16 Unfinalized History Date/Time Username Reason for Unfinalizing Freetext Reason for Unfinalizing 01/15/19 13:16 [email or web address] Correct Billing Electronically signed by Francisco [facility] Conversion Warp Splitter Cerner at 09/18/2022 6:16 PM CDT documented in this encounter Plan of Treatment Upcoming Encounters Date Type Department Care Team (Late st Contact Info) Description 12/19/2024 10:45 AM EDT Office Visit [facility] Cardiology [facility] [address] [place] [id number] Francesco John DO [address] [place] [address] documented as of this encounter Visit Diagnoses Not on filedocumented in this encounter Care Teams Hospital Cook Relationship Specialty Start Date End Date Diego Perez MD [address] [place] [address] PCP - General Family Medicine 04/04/22 12/11/22 Diego Perez MD [address] [place] [address] PCP - General Family Medicine 12/12/22 Beth Montiel, [facility] [address] [place] [address] Nurse Practitioner 12/12/22 John Maya DO [address] [place] [address] Global Compensation Analyst Cardiology 02/23/24 Ernie Tsai MD [address] [facility] [address] [place] [address] Global Compensation Analyst Electrophysiology 02/23/24 documented as of this encounter
--- OUTSIDE RECORDS SUMMARY | 2024-12-11 06:48 | XMS_ITS | Encounter Summary ---
Author Organization [employer] ([place], [place], [place], [place]) Address [address] [place] [address] Care Team Providers Care Tailor'S Aide Name Role Phone Diego Perez MD Primary Care Provider [phone] Diego Perez MD Primary Care Provider [phone] Beth Montiel APRN Unavailable [phone] John Maya DO Unavailable [phone] Ernie Tsai MD Unavailable Encounter Details Date Type Department Care Team (Late st Contact Info) Description 01/14/2019 Transcribed Document [facility] [place] [address] [place] [address] ProviderUmang MD [address] [place] [address] Social History Tobacco Use Types Packs/Day Years Used Date Smoking Tobacco: Never Assessed Sex and Gender Information Value Date Recorded Sex Assigned at Male 12/01/2021 10:23 PM CDT Legal Sex Male 6:41 PM CDT Gender Identity Male 12/01/2021 10:23 PM CDT Sexual Orientation Not on file documented as of this encounter Miscellaneous Notes * [employer] Conversion Note - Umang Lowe MD - 01/14/2019 12:34 PM CDT Patient Education Materials Follows: General Anesthesia, Adult, Care After This sheet gives you information about how to care for yourself after your procedure. Your health care provider may also give you more specific instructions. If you have problems or questions, contact your health care provider. What can I expect after the procedure? After the procedure, the following side effects are common: ??? Pain or discomfort at the IV site. ??? Nausea. ??? Vomiting. ??? Sore throat. ??? Trouble concentrating. ??? Feeling cold or chills. ??? Weak or tired. ??? Sleepiness and fatigue. ??? Soreness and body aches. These side effects can affect parts of the body that were not involved in surgery. Follow these instructions at home: For at least 24 hours after the procedure: ??? Have a responsible adult stay with you. It is important to have someone help care for you until you are awake and alert. ??? Rest as needed. ??? Do not: ? Participate in activities in which you could fall or become injured. ? Drive. ? Use heavy machinery. ? Drink alcohol. ? Take sleeping pills or medicines that cause drowsiness. ? Make important decisions or sign legal documents. ? Take care of children on your own. Eating and drinking ??? Follow any instructions from your health care provider about eating or drinking restrictions. ??? When you feel hungry, start by eating small amounts of foods that are soft and easy to digest (bland), such as toast. Gradually return to your regular diet. ??? Drink enough fluid to keep your urine pale yellow. ??? If you vomit, rehydrate by drinking water, juice, or clear broth. General instructions ??? If you have sleep apnea, surgery and certain medicines can increase your risk for breathing problems. Follow instructions from your health care provider about wearing your sleep device: ? Anytime you are sleeping, including during daytime naps. ? While taking prescription pain medicines, sleeping medicines, or medicines that make you drowsy. ??? Return to your normal activities as told by your health care provider. Ask your health care provider what activities are safe for you. ??? Take jlur-cbb-pjyghnk and prescription medicines only as told by your health care provider. ??? If you smoke, do not smoke without supervision. ??? Keep all follow-up visits as told by your health care provider. This is important. Contact a health care provider if: ??? You have nausea or vomiting that does not get better with medicine. ??? You cannot eat or drink without vomiting. ??? You have pain that does not get better with medicine. ??? You are unable to pass urine. ??? You develop a skin rash. ??? You have a fever. ??? You have redness around your IV site that gets worse. Get help right away if: ??? You have difficulty breathing. ??? You have chest pain. ??? You have blood in your urine or stool, or you vomit blood. Summary ??? After the procedure, it is common to have a sore throat or nausea. It is also common to feel tired. ??? Have a responsible adult stay with you for the first 24 hours after general anesthesia. It is important to have someone help care for you until you are awake and alert. ??? When you feel hungry, start by eating small amounts of foods that are soft and easy to digest (bland), such as toast. Gradually return to your regular diet. ??? Drink enough fluid to keep your urine pale yellow. ??? Return to your normal activities as told by your health care provider. Ask your health care provider what activities are safe for you. This information is not intended to replace advice given to you by your health care provider. Make sure you discuss any questions you have with your health care provider. Document Released: 08/28/2001 Document Revised: 01/05/2018 Document Reviewed: 01/05/2018 [employer] Patient Education ? 2019 [employer] Nephrology Lithotripsy, Care After This sheet gives you information about how to care for yourself after your procedure. Your health care provider may also give you more specific instructions. If you have problems or questions, contact your health care provider. What can I expect after the procedure? After the procedure, it is common to have: ??? Some blood in your urine. This should only last for a few days. ??? Soreness in your back, sides, or upper abdomen for a few days. ??? Blotches or bruises on your back where the pressure wave entered the skin. ??? Pain, discomfort, or nausea when pieces (fragments) of the kidney stone move through the tube that carries urine from the kidney to the bladder (ureter). Stone fragments may pass soon after the procedure, but they may continue to pass for up to 4?8 weeks. ? If you have severe pain or nausea, contact your health care provider. This may be caused by a large stone that was not broken up, and this may mean that you need more treatment. ??? Some pain or discomfort during urination. ??? Some pain or discomfort in the lower abdomen or (in men) at the base of the penis. Follow these instructions at home: Medicines ??? Take vqvm-cyd-homystc and prescription medicines only as told by your health care provider. ??? If you were prescribed an antibiotic medicine, take it as told by your health care provider. Do not stop taking the antibiotic even if you start to feel better. ??? Do not drive for 24 hours if you were given a medicine to help you relax (sedative). ??? Do not drive or use heavy machinery while taking prescription pain medicine. Eating and drinking ??? Drink enough water and fluids to keep your urine clear or pale yellow. This helps any remaining pieces of the stone to pass. It can also help prevent new stones from forming. ??? Eat plenty of fresh fruits and vegetables. ??? Follow instructions from your health care provider about eating and drinking restrictions. You may be instructed: ? To reduce how much salt (sodium) you eat or drink. Check ingredients and nutrition facts on packaged foods and beverages. ? To reduce how much meat you eat. ??? Eat the recommended amount of calcium for your age and gender. Ask your health care provider how much calcium you should have. General instructions ??? Get plenty of rest. ??? Most people can resume normal activities 1?2 days after the procedure. Ask your health care provider what activities are safe for you. ??? If directed, strain all urine through the strainer that was provided by your health care provider. ? Keep all fragments for your health care provider to see. Any stones that are found may be sent to a medical lab for examination. The stone may be as small as a grain of salt. ??? Keep all follow-up visits as told by your health care provider. This is important. Contact a health care provider if: ??? You have pain that is severe or does not get better with medicine. ??? You have nausea that is severe or does not go away. ??? You have blood in your urine longer than your health care provider told you to expect. ??? You have more blood in your urine. ??? You have pain during urination that does not go away. ??? You urinate more frequently than usual and this does not go away. ??? You develop a rash or any other possible signs of an allergic reaction. Get help right away if: ??? You have severe pain in your back, sides, or upper abdomen. ??? You have severe pain while urinating. ??? Your urine is very dark red. ??? You have blood in your stool (feces). ??? You cannot pass any urine at all. ??? You feel a strong urge to urinate after emptying your bladder. ??? You have a fever or chills. ??? You develop shortness of breath, difficulty breathing, or chest pain. ??? You have severe nausea that leads to persistent vomiting. ??? You faint. Summary ??? After this procedure, it is common to have some pain, discomfort, or nausea when pieces (fragments) of the kidney stone move through the tube that carries urine from the kidney to the bladder (ureter). If this pain or nausea is severe, however, you should contact your health care provider. ??? Most people can resume normal activities 1?2 days after the procedure. Ask your health care provider what activities are safe for you. ??? Drink enough water and fluids to keep your urine clear or pale yellow. This helps any remaining pieces of the stone to pass, and it can help prevent new stones from forming. ??? If directed, strain your urine and keep all fragments for your health care provider to see. Fragments or stones may be as small as a grain of salt. ??? Get help right away if you have severe pain in your back, sides, or upper abdomen or have severe pain while urinating. This information is not intended to replace advice given to you by your health care provider. Make sure you discuss any questions you have with your health care provider. Document Released: 06/10/2008 Document Revised: 04/12/2017 Document Reviewed: 04/12/2017 [employer] Interactive Patient Education ? 2019 [employer] Electronically signed by Zoya Singh Conversion Digital Associate Media Director Cerner at 09/18/2022 6:09 PM CDT documented in this encounter Plan of Treatment Upcoming Encounters Date Type Department Care Team (Late st Contact Info) Description 12/19/2024 10:45 AM EDT Office Visit [facility] Cardiology - [place] [address] [place] [address] John Maya DO [address] [place], [place] [id number] documented as of this encounter Visit Diagnoses Not on filedocumented in this encounter Care Teams Tailor'S Aide Relationship Specialty Start Date End Date Diego Perez MD [address] [place] [address] PCP - General Family Medicine 04/04/22 12/11/22 Diego Perez MD [address] [place] [address] PCP - General Family Medicine 12/12/22 Beth Montiel, COMPENSATION AND HRIS ANALYST [address] [place] [address] Nurse Practitioner 12/12/22 John Maya DO [address] [place] [address] Aviation Ordnance Officer Cardiology 02/23/24 Ernie Tsai MD [address] [facility] [address] [place] [address] Aviation Ordnance Officer Electrophysiology 02/23/24 documented as of this encounter
--- OUTSIDE RECORDS SUMMARY | 2024-12-11 06:48 | XMS_ITS | Encounter Summary ---
Author Organization [employer] ([place], [place], [place], [place]) Address [address] [place] [address] Care Team Providers Care Turn Laster Name Role Phone Diego Perez MD Primary Care Provider [phone] Diego Perez MD Primary Care Provider [phone] Beth Montiel APRN Unavailable [phone] John Maya DO Unavailable [phone] Ernie Tsai MD Unavailable Encounter Details Date Type Department Care Team (Late st Contact Info) Description 01/14/2019 Transcribed Document [facility] [place] Medicine [address] [place] [address] ProviderUmang MD [address] [place] [address] Social History Tobacco Use Types Packs/Day Years Used Date Smoking Tobacco: Never Assessed Sex and Gender Information Value Date Recorded Sex Assigned at Male 12/01/2021 10:23 PM CDT Legal Sex Male 6:41 PM CDT Gender Identity Male 12/01/2021 10:23 PM CDT Sexual Orientation Not on file documented as of this encounter Miscellaneous Notes * Cerner Conversion Note - Historical ProviderMD - 01/14/2019 12:47 PM CDT [facility] [place] [address] ROBERT ROBERTSON :1980 Visit Time:01/14/2019 What to do next Your Diagnosis Calculus of kidney, Calculus of kidney Instructions From Your Care Team Diet after Discharge: Resume usual diet as tolerated, Do not drink any alcoholic beverages, Drink at least 8-10 glasses of water per day Activity after Discharge: As tolerated, Rest and relax today, No strenuous activity Lifting Restrictions: No heavy lifting over 10 pounds Driving after Discharge: Do not drive until 24 hours after no longer taking pain medications Showering/Bathing: May shower in 3 days, No tub bathing, soaking or swimming Notify Provider of: temp over 101, inability to void follow ESWL sheet and strain all urine Discharge Follow Up Instructions: Provide discharge instructions for ESWL procedure Follow Up Instructions: Schedule follow up with [facility] Follow Up Instructions: F/U 2 weeks Follow-Up Appointments Follow Up with KYLER BORDEN MD-URO When Within 1 to 2 weeks Comments FOLLOW UP IN [address] Knott 01-31-19 at 1 pm with MEY in [facility] Where: [address] [place] [address]- Medications What How Much When Instructions Next Dose acetaminophen-oxyCODONE (acetaminophen-oxyCODONE 325 mg-5 mg oral tablet) 1 Tablet(s) Oral Every 4 Hours as needed for for pain Duration: 3 Day(s) Printed Prescription cholecalciferol (Vitamin D3) 5,000 International Units Oral Every Day fenofibrate 160 Milligram(s) Oral Every Day multivitamin 1 Tablet(s) Oral Every Day omega-3 polyunsaturated fatty acids (Fish Oil) 2,000 Milligram(s) Oral Every Day propranolol 10 Milligram(s) Oral Two Times A Day Take your medications faithfully. Do NOT skip medication. Do NOT stop taking medications without the direction of a physician. Carry a list of your medications with you at all times, and take this medication list with you to your first follow up visit. Report any side effects. Avoid herbal remedies unless discussed with your physician. As part of your treatment plan, your physician may have prescribed a limited course of a controlled substance. This medication may be given to help people with moderate or severe pain or for other medical conditions, but there are risks involved with treatment. Common side effects may include nausea, constipation, drowsiness, sweating, itching, dry mouth, and rash. More serious side effects may include cognitive and motor impairment, like problems with thinking, concentrating, alertness, and movement (e.g. slowed reflexes), and driving and operating heavy machinery can be dangerous. It is important for you to talk to your physician if you have these side effects or questions. These controlled substances can produce physical dependence and be habit-forming if taken for an extended period of time, which means that the body has gotten used to them and may experience withdrawal symptoms if they are abruptly stopped. Withdrawal symptoms can include runny nose, sweating, goose bumps, diarrhea, abdominal cramping, rapid heartbeat, difficulty sleeping, and nervousness. Please dispose of unused and medications per pharmacy guidance. Education Materials General Anesthesia, Adult, Care After This sheet [...] activities are safe for you. ??? Take zxfb-bel-arknbrp and prescription medicines only as told by [...] 08/28/2001 Document Revised: 01/05/2018 Document Reviewed: 01/05/2018 [employer] Interactive Patient Education ?? 2019 [employer] Lithotripsy, Care After This sheet gives you [...] may continue to pass for up to 4???8 weeks. ? If you have severe pain [...] these instructions at home: Medicines ??? Take esmn-jii-cwoicwg and prescription medicines only as told by [...] ??? Most people can resume normal activities 1???2 days after the procedure. Ask your health [...] ??? Most people can resume normal activities 1???2 days after the procedure. Ask your health [...] 06/10/2008 Document Revised: 04/12/2017 Document Reviewed: 04/12/2017 [employer] Interactive Patient Education ?? 2019 [employer]. Emergency Awareness and Preventative Care STROKE is an EMERGENCY Every Minute Counts Act FAST and Check for these signs: FACE Does the face look uneven? ARM Does one arm drift down? SPEECH Does their speech sound strange? TIME Call at any sign of stroke Stroke Risk Factors Atrial Fibrillation (irregular heartbeat) Diabetes Family history of stroke Heart Disease Heavy alcohol use High Blood Pressure High Cholesterol Physical inactivity and obesity Smoking Cigarette Smoking The facts are clear, cigarette smoking will shorten your life. Smoking can cause many illnesses along the way. As a healthcare provider, we recommend that you stop smoking. Assistance with quitting is available by contacting 2-107-VEQR-NOW. This is a free resource providing counseling, support, and referral. Or you may contact your personal physician. National Suicide Prevention Lifeline: The National Suicide Prevention Lifeline is a national network of local crisis centers that provides free and confidential emotional support to people in suicidal crisis or emotional distress 24 hours a day, 7 days a week. Don't Wait! Stop a Heart Attack Before it Starts What is a heart attack? A heart attack is damage or to a part of the heart from severely decreased or lack of blood flow to the heart. Over time, arteries can become narrow from the buildup of fat and cholesterol, which is called plaque. The plaque can rupture causing a blood clot to form. When the blood clot forms, the artery can become severely narrowed or completely blocked, causing a heart attack. Heart attack is the leading cause of in the [place]. 85% of muscle damage occurs within the first 2 hours. Delay in the recognition of heart attack symptoms increases the chances of . Know the early symptoms of a heart attack: Nausea Feeling of fullness in chest Jaw Pain Pain that travels down one or both arms Fatigue/being tired Anxiety Back Pain Chest pressure, squeezing, or discomfort Shortness of breath Sweating, or a cold sweat Feeling of impending doom There are unusual signs of a heart attack, too! Women, the elderly, and diabetics may present with atypical symptoms: Fainting/dizziness Weakness Confusion Risk Factors for a Heart Attack Some heart disease risk factors, such as age and family history, cannot be changed. Others, like smoking and lack of exercise, can be changed. Smoking High Cholesterol High Blood Pressure Family History Obesity Age Gender (Males are at higher risk) Lack of Exercise Diabetes Diet Stress Excessive Alcohol Intake If you or someone you know is experiencing the signs and symptoms of a heart attack, DON???T DELAY. Call immediately and seek help. If someone collapses, perform CPR! Do not attempt to drive if you are having symptoms of heart attack. Hands-Only CPR Why Hands-Only CPR? Hands-Only CPR has been shown to be as effective as conventional CPR for cardiac arrests that occur outside of a hospital. Survival depends on immediately receiving CPR from someone nearby. How do you perform Hands-Only CPR? There are two easy steps: Call if you see a teen or adult collapse Push hard and fast in the center of the chest at a beat of 100 beats per minute. Save a life! 4 WAYS TO GET AHEAD OF SEPSIS SEPSIS is a MEDICAL EMERGENCY. Time matters! Infections put you and your family at risk for a life-threatening condition called sepsis. Sepsis is the body's extreme response to an infection. It is life-threatening, and without timely treatment, sepsis can rapidly lead to tissue damage, organ failure, and . Sepsis happens when an infection you already have-in your skin, lungs, urinary tract or somewhere else-triggers a chain reaction throughout your body. 1 PREVENT INFECTIONS Take good care of chronic conditions. Talk to your doctor about getting the recommended vaccines. 2 PRACTICE GOOD HYGIENE Wash your hands frequently. Keep cuts or open sores clean and covered until they are healed. 3 KNOW THE SYMPTOMS Confusion or disorientation Shortness of breath High heart rate Fever, shivering, or feeling very cold Extreme pain or discomfort Clammy or sweaty skin 4 ACT FAST Get medical care IMMEDIATELY if you suspect sepsis or if you have an infection that is not getting better or is getting worse. To learn more about sepsis and how to prevent infections, visit www.cdc.gov/sepsis. Test Results Laboratory or Other Results This Visit (last charted value for your 01/14/2019 visit) Urinalysis 01/14/19 08:46:00 Urine Nitrite: Negative Urine Leukocyte Esterase: Negative Urine Appearance: Clear Urine Glucose Dipstick: Negative Urine Blood Dipstick: Negative Urine Type: U CleanCatch Urine Urobilinogen Dipstick: 0.2 EU/dL Urine Protein Dipstick: Negative Urine Color: Yellow Urine Ketones Dipstick: Negative Urine pH Dipstick: 5.5 -- Normal range between ( 6.0 and 8.0 ) Urine Bilirubin Dipstick: Negative Urine Specific Geraldine: 1.019 -- Normal range between ( 1.005 and 1.030 ) Diagnostic Radiology 01/14/19 06:19:00 CR Abdomen 1 Vw: CR Abdomen 1 Vw Patient Name:ROBERT ROBERTSON I have received this information and was given the opportunity to ask questions. Patient/Flag Signaler Name: Patient/Flag Signaler Signature: Relationship to Patient: Clinician/Hospital Flag Signaler Signature: Date: documented in this encounter Plan of Treatment Upcoming Encounters Date Type Department Care Team (Late st Contact Info) Description 12/19/2024 10:45 AM EDT Office Visit [facility] Cardiology [facility] [address] [place] [address] John Myaa DO [address] [place] [address] documented as of this encounter Visit Diagnoses Not on filedocumented in this encounter Care Teams Turn Laster Relationship Specialty Start Date End Date Diego Perez MD [address] [place] [address] PCP - General Family Medicine 04/04/22 12/11/22 Diego Perez MD [address] [place] [address] PCP - General Family Medicine 12/12/22 Beth Montiel, ADRIENNE [address] [place] [phone] Nurse Practitioner 12/12/22 John Maya, DO [address] [place] [address] Finance Teacher Cardiology 02/23/24 Ernie Tsai MD [address] [facility] [address] [place] [address] Finance Teacher Electrophysiology 02/23/24 documented as of this encounter
--- OUTSIDE RECORDS SUMMARY | 2024-12-11 06:48 | XMS_ITS | Clinical Summary ---
Author Organization [email or web address] ([place], [place], [place], [place]) Address [address] [place] [address] Care Team Providers Care Women'S Studies Professor Name Role Phone Diego Perez MD Primary Care Provider [phone] Beth Montiel APRN Unavailable [phone] John Maya DO Unavailable [phone] Ernie Tsai MD Unavailable Allergies Active Allergy Reactions Criticality Noted Date [...] capsule (60 mg total) by mouth daily. 3 Active multivitamin per tablet Take 1 tablet [...] High triglycerides 07/13/2022 Renal stones 07/13/2022 11/02/2023 Encounters Date Type Department Care Team Description 11/18/2024 6:00 PM EDT Clinical Support [facility] Electrophysiology [address] [place], [place] [id number] Ernie Tsai MD Encounter for adjustment or management of cardiac device (Primary Dx); Cryptogenic stroke (HCC); Implantable loop recorder present 10/17/2024 6:00 AM EDT Clinical Support [facility] Electrophysiology [address] [place], [place] [phone] Ernie Tsai MD Encounter for adjustment or management of cardiac device (Primary Dx); Cryptogenic stroke (HCC); Implantable loop recorder present 09/16/2024 5:00 AM EDT Clinical Support [facility] Electrophysiology [address] [place] [phone] Reji Lindquist MD Encounter for adjustment or management of cardiac device (Primary Dx); Cryptogenic stroke (HCC); Implantable loop recorder present from Last 3 Months Immunizations Name Administration Dates Next Due Covid-19 Vaccine MRNA (PF) 1 8yr+ (Moderna)([id number]) 05/17/2021,09/25/2020,08/25/2020 Family History Medical History Relation Name Comments Heart attack Brother Heart attack Father Coronary artery disease Other Hypertension Other Relation Name Status Comments Brother Father Other Social History Tobacco Use Types Packs/Day Years [...] Date Lupillo rded Speak language other than Kyrgyz at home Not on file 06/16/2023 Want [...] Description 12/19/2024 10:45 AM EDT Office Visit [facility] Cardiology [address] [address] John Maya DO [address] [place] [address] Health Maintenance Due Date Last Done Comments CT Colonography 1978 Colonoscopy 1978 Colorectal Cancer Screening 1978 FOBT/FIT 1978 Fit-DNA (Cologuard) 1980 Sigmoidoscopy 1978 Depression Screening (12+) 1990 HIV Screening 1993 Hepatitis C Screening 01/20/1996 DTAP/TDAP/TD VACCINES (1 - Tdap) 1997 Lipid Panel 2013 COVID-19 VACCINE (4 - 2023-2 5 season) 2024 05/17/2021, 09/25/2020, 08/25/2020 Tobacco Cessation Counseling and Screening (12+) 12/20/2024 12/21/2023 Influenza Vaccine (#1) 2025 Pneumococcal Vaccine: 0-49 Years Aged Out No longer eligible b ased on patient's age to complete this topic Medical Devices Implanted Type Area Surgical Nurse Practitioner Device Identifier Shelf Expiration Date Model / Serial / Lot Loop Recorder-2022 Implanted:01/03 by Ernie Tsai MD (Quantity not on file) LOOP RECORDER [employer] LINQ 2 / [id number] / Insurance BLUE CROSS/BLUE SHIELD Advance Directives For more information, please contact: [phone] Documents on File Type Date Recorded Patient Bonding Equipment Operator Expl anation Advance Directives and Livin g Will 08/02/2022 6:59 AM * Full Code (Latest Code Status on File) Date Activated Date Inactivated Comments 01/17/2023 10:22 PM 2023 4:27 AM * Full Code Date Activated Date Inactivated Comments 08/02/2022 11:55 AM 08/04/2022 3:16 PM Care Teams Women'S Studies Professor Relationship Specialty Start Date End Date Diego Perez MD [address] [place] [address] PCP - General Family Medicine 12/12/22 Beth Montiel, DATA REVIEWER [address] [place] [address] Nurse Practitioner 12/12/22 John Maya DO [address] [place] [address] Shovel Loader Operator Cardiology 02/23/24 [place] [address] [place] [address] [address] Shovel Loader Operator Electrophysiology 02/23/24
--- OUTSIDE RECORDS SUMMARY | 2024-12-11 06:48 | XMS_ITS | Encounter Summary ---
Author Organization [email or web address] ([place], [place], [place], [place]) Address [address] [place] [address] Care Team Providers Care Hospitality Intern Name Role Phone Diego Perez MD Primary Care Provider [phone] Diego Perez MD Primary Care Provider [phone] Beth Montiel APRN Unavailable [phone] John Maya DO Unavailable [phone] Ernie Tsai MD Unavailable Encounter Details Date Type Department Care Team (Late st Contact Info) Description 01/14/2019 Transcribed Document [facility] [place] [address] [place] [address] ProviderUmang MD [address] [place] [address] Social History Tobacco Use Types Packs/Day Years Used Date Smoking Tobacco: Never Assessed Sex and Gender Information Value Date Recorded Sex Assigned at Male 12/01/2021 10:23 PM CDT Legal Sex Male 6:41 PM CDT Gender Identity Male 12/01/2021 10:23 PM CDT Sexual Orientation Not on file documented as of this encounter Miscellaneous Notes * Cerner Conversion Note - Historical ProviderMD - 01/14/2019 11:11 AM CDT Patient: ROBERT ROBERTSON Age: 38 Years Sex: Male : 1980 *Operation Right ESWL Indication for Surgery Right kidney stone *Preoperative Diagnosis Right kidney stone *Postoperative Diagnosis Right kidney stone *Surgeon(s) Primary Surgeon Se *Estimated Blood Loss 0 ml *Findings Good fragmentation by fluoro *Specimen(s) None Complications None Date of Service Date/Time of Service SN - Proc - Start Time: 01/14/19 10:09:00 (01/14/19 10:22:45) Electronically signed by [facility] Conversion Assistant Chief Nursing Officer Cerner at 09/18/2022 5:56 PM CDT documented in this encounter Plan of Treatment Upcoming Encounters Date Type Department Care Team (Late st Contact Info) Description 12/19/2024 10:45 AM EDT Office Visit [facility] Cardiology - [place] [address] [place] [address] John Maya DO [address] [place] [address] documented as of this encounter Visit Diagnoses Not on filedocumented in this encounter Care Teams Hospitality Intern Relationship Specialty Start Date End Date Diego Perez MD [address] [place] [address] PCP - General Family Medicine 04/04/22 12/11/22 Diego Perez MD [address] [place] [address] PCP - General Family Medicine 12/12/22 Beth Montiel, SEQUENCING MACHINE OPERATOR [address] [place] [address] Nurse Practitioner 12/12/22 John Maya DO [address] [place] [address] [facility] Cardiology 02/23/24 Ernie Tsai MD [address] [facility] [address] [place] [address] [facility] Electrophysiology 02/23/24 documented as of this encounter
--- OUTSIDE RECORDS SUMMARY | 2024-12-11 06:48 | XMS_ITS | Data Portability ---
Author Organization LISETTE LUCAS Cee LANSFORD CLOSED Address [address] [facility] [address] [place] [address] Assessment Encounter Date Assessment Date Assessment LastModified by Organization Details LastModified Time 12/24/2018 12/24/2018 We discussed the diagnosis of urolithiasis and treatment options. He would like to proceed with ESWL. [email or web address] Not available 01/06/2019 07:58:38 01/31/2019 01/31/2019 Kidney stones for analysis. We discussed kidney stone prevention. Follow-up with KUB. [email or web address] Not available 02/17/2019 18:13:41 Plan of Treatment Reminders Order Date Submit Date Provider Last Modified By Organization Details Last Modified Time Details Appointments None recorded. Lab urinalysis, dipstick, auto 2018 019 [email or web address] 14 [facility] [place] [facility], [address] [place] [address] [address], [place], [address], 9 16:37:25 kidney stone analysis 2018 019 [facility], [address] [facility], [place], [address], 9 17:50:20 urinalysis, dipstick, auto 2018 [email or web address] [place], [place] [address], [address], [place], [address], 9 07:58:20 Referral None recorded. Procedures None recorded. Surgeries extra corporeal shockwave lithotripsy (SURG) 2018 019 [facility] (Main), [address] , [place], [address], 9 15:39:18 Imaging None recorded. Medication Orders None recorded. Patient TargetsNo targets recorded. Patient Instructions Encounter Date Encounter Id Patient Instructions Last Modified By Organization Details Last Modified Time 12/24/2018 [id number] healthy together [email or web address] Not availa ble 01/06/2019 07:58:20 kidney stone: care instructions [email or web address] Not available 01/06/2019 07:58:20 learning about diet for kidney stone prevention [email or web address] Not available 01/06/2019 07:58:20 Reason for Referral None Reported. Results Created Date Observation Date Name Description Value Unit Range Abnormal Flag Note LastModifiedBy Organization Detail LastModifiedTime 12/25/19 19 12/24/2018 urina lysis , dipst ick, auto Unknown Analyte Yellow Not Available [facility] [address], [place], [address], 12/24/2018 15:06:55 12/25/19 19 12/24/2018 urina lysis , dipst ick, auto Unknown Analyte Clear Not Available [facility] [address] [place] [address] [address], [place], [address], 12/24/2018 15:06:55 12/25/19 19 12/24/2018 urina lysis , dipst ick, auto Unknown Analyte 1.025 Not Available [facility] [address] [place] [address] [address], [place], [address], 12/24/2018 15:06:55 12/25/19 19 12/24/2018 urina lysis , dipst ick, auto Unknown Analyte 1.003 - 1.035 Not Available [facility] [address], [place], [address], 12/24/2018 15:06:55 12/25/19 19 12/24/2018 urina lysis , dipst ick, auto Unknown Analyte 5.0 Not Available [facility] [address] [facility] [address], [place], [address], 12/24/2018 15:06:55 12/25/19 19 12/24/2018 urina lysis , dipst ick, auto Unknown Analyte 5.0 - 8.0 Not Available [facility] [address] [facility] [address], [place], [address], 12/24/2018 15:06:55 12/25/19 19 12/24/2018 urina lysis , dipst ick, auto Unknown Analyte Negati ve Not Available [facility] [address] [facility] [address], [place], [address], 12/24/2018 15:06:55 12/25/19 19 12/24/2018 urina lysis , dipst ick, auto Unknown Analyte Negati ve Not Available [facility] [address] [place] [address] [address], [place], [address], 12/24/2018 15:06:55 12/25/19 19 12/24/2018 urina lysis , dipst ick, auto Unknown Analyte Negati ve Not Available [facility] [address], [place], [address], 12/24/2018 15:06:55 12/25/19 19 12/24/2018 urina lysis , dipst ick, auto Unknown Analyte Negati ve Not Available [facility] [address], [place], [address], 12/24/2018 15:06:55 12/25/19 19 12/24/2018 urina lysis , dipst ick, auto Unknown Analyte Negtiv e Not Available [facility] [address], [place], [address], 12/24/2018 15:06:55 12/25/19 19 12/24/2018 urina lysis , dipst ick, auto Unknown Analyte Negati ve - Trace Not Available [facility] [address], [place], [address], 12/24/2018 15:06:55 12/25/19 19 12/24/2018 urina lysis , dipst ick, auto Unknown Analyte Normal Not Available [facility] [address], [place], [address], 12/24/2018 15:06:55 12/25/19 19 12/24/2018 urina lysis , dipst ick, auto Unknown Analyte Normal Not Available [facility] [address], [place], [address], 12/24/2018 15:06:55 12/25/19 19 12/24/2018 urina lysis , dipst ick, auto Unknown Analyte Negati ve Not Available [facility] [address], [place], [address], 12/24/2018 15:06:55 12/25/19 19 12/24/2018 urina lysis , dipst ick, auto Unknown Analyte Negati ve Not Available [facility] [address], [place], [address], 12/24/2018 15:06:55 12/25/19 19 12/24/2018 urina lysis , dipst ick, auto Unknown Analyte Normal Not Available [facility] [address], [place], [address], 12/24/2018 15:06:55 12/25/19 19 12/24/2018 urina lysis , dipst ick, auto Unknown Analyte Normal - 1mg/dl Not Available [facility] [address], [place], [address], 12/24/2018 15:06:55 12/25/19 19 12/24/2018 urina lysis , dipst ick, auto Unknown Analyte Negati ve Not Available [facility] [address], [place], [address], 12/24/2018 15:06:55 12/25/19 19 12/24/2018 urina lysis , dipst ick, auto Unknown Analyte Negati ve Not Available [facility] [address], [place], [address], 12/24/2018 15:06:55 12/25/19 19 12/24/2018 urina lysis , dipst ick, auto Unknown Analyte Negati ve Not Available [facility] [address], [place], [address], 12/24/2018 15:06:55 12/25/19 19 12/24/2018 urina lysis , dipst ick, auto Unknown Analyte Negati ve Not Available [facility] [address] [facility] [address], [place], [address], 12/24/2018 15:06:55 12/25/19 19 12/24/2018 urina lysis , dipst ick, auto Unknown Analyte Clean Catch Not Available [facility] [address] [facility] [address], [place], [address], 12/24/2018 15:06:55 12/25/19 19 12/24/2018 urina lysis , dipst ick, auto Unknown Analyte Automa yoel Not Available [facility] [address] [facility] [address], [place], [address], 12/24/2018 15:06:55 02/01/20 19 01/31/2019 urina lysis , dipst ick, auto Unknown Analyte Yellow Not Available [facility] With [address], [place], [address], 01/31/2019 12:56:05 02/01/20 19 01/31/2019 urina lysis , dipst ick, auto Unknown Analyte Clear Not Available [facility] With [address], [place], [address], 01/31/2019 12:56:05 02/01/20 19 01/31/2019 urina lysis , dipst ick, auto Unknown Analyte 1.020 Not Available [facility] With [address], [place], [address], 01/31/2019 12:56:05 02/01/20 19 01/31/2019 urina lysis , dipst ick, auto Unknown Analyte 1.003 - 1.035 Not Available [facility] With [address] [place], [address], 01/31/2019 12:56:05 02/01/20 19 01/31/2019 urina lysis , dipst ick, auto Unknown Analyte 5.0 Not Available [facility] With [address] [place], [address], 01/31/2019 12:56:05 02/01/20 19 01/31/2019 urina lysis , dipst ick, auto Unknown Analyte 5.0 - 8.0 Not Available [facility] With [address] [place], [address], 01/31/2019 12:56:05 02/01/20 19 01/31/2019 urina lysis , dipst ick, auto Unknown Analyte Negati ve Not Available [facility] With [address] [place], [address], 01/31/2019 12:56:05 02/01/20 19 01/31/2019 urina lysis , dipst ick, auto Unknown Analyte Negati ve Not Available [facility] With [address] [place], [address], 01/31/2019 12:56:05 02/01/2001/31/2019 urina lysis , dipst ick, auto Unknown Analyte Negati ve Not Available [facility] With [address] [place], [address], 01/31/2019 12:56:05 02/01/20 19 01/31/2019 urina lysis , dipst ick, auto Unknown Analyte Negati ve Not Available [facility] With [address] [place], [address], 01/31/2019 12:56:05 02/01/20 19 01/31/2019 urina lysis , dipst ick, auto Unknown Analyte Negtiv e Not Available [facility] With [address] [place], [address], 01/31/2019 12:56:05 02/01/20 19 01/31/2019 urina lysis , dipst ick, auto Unknown Analyte Negati ve - Trace Not Available [facility] With [address] [place], [address], 01/31/2019 12:56:05 02/01/20 19 01/31/2019 urina lysis , dipst ick, auto Unknown Analyte Normal Not Available [facility] With [address] [place], [address], 01/31/2019 12:56:05 02/01/20 19 01/31/2019 urina lysis , dipst ick, auto Unknown Analyte Normal Not Available [facility] With [address] [place], [address], 01/31/2019 12:56:05 02/01/20 19 01/31/2019 urina lysis , dipst ick, auto Unknown Analyte Negati ve Not Available [facility] With [address] [place], [address], 01/31/2019 12:56:05 02/01/2001/31/2019 urina lysis , dipst ick, auto Unknown Analyte Negati ve Not Available [facility] With [address] [place], [address], 01/31/2019 12:56:05 02/01/20 19 01/31/2019 urina lysis , dipst ick, auto Unknown Analyte Normal Not Available [facility] With [address], [place], [address], 01/31/2019 12:56:05 02/01/20 19 01/31/2019 urina lysis , dipst ick, auto Unknown Analyte Normal - 1mg/dl Not Available [facility] With [address], [place], [address], 01/31/2019 12:56:05 02/01/2001/31/2019 urina lysis , dipst ick, auto Unknown Analyte Negati ve Not Available [facility] With [address] [place], [address], 01/31/2019 12:56:05 02/01/20 19 01/31/2019 urina lysis , dipst ick, auto Unknown Analyte Negati ve Not Available [facility] With [address] [place], [address], 01/31/2019 12:56:05 02/01/20 19 01/31/2019 urina lysis , dipst ick, auto Unknown Analyte Trace Not Available [facility] With [address] [place], [address], 01/31/2019 12:56:05 02/01/20 19 01/31/2019 urina lysis , dipst ick, auto Unknown Analyte Negati ve Not Available [facility] With [address] [place], [address], 01/31/2019 12:56:05 02/01/20 19 01/31/2019 urina lysis , dipst ick, auto Unknown Analyte Clean Catch Not Available [facility] With [address], [place], [address], 01/31/2019 12:56:05 02/01/2001/31/2019 urina lysis , dipst ick, auto Unknown Analyte Automa yoel Not Available [facility] [place] [facility] With [address], [place], [address], 01/31/2019 12:56:05 02/02/2002/06/2019 kidne y stone lakhwinder sis nidus Not observ ed normal Not Available [facility] [address] [place], [address], 02/06/2019 17:50:20 02/02/2002/06/2019 kidne y stone lakhwinder sis composition See Below normal Calci um Oxala te Dihyd rate (Wedd ellit e) 95% Calci um Oxala te Monoh ydrat e (Whew ellit e) 5% Not Available [facility] [address] [place], [address], 02/06/2019 17:50:20 02/02/2002/06/2019 kidne y stone lakhwinder sis weight 0.1880 g normal This test was devel oped and its lakhwinder tical perfo rmanc e doug cteri stics have been deter mined by [facility] Shon dannie Nava sheri Richard cia. It has not been clear ed or appro aleks by the [place] Food and Drug Admin istra tion. This assay has been valid ated pursu ant to the CLIA regul ation s and is used for clini osman purpo ses. TEST PERFO RMED AT: [facility] SHON DANNIE RICHARD [facility], 1928–1983 [address] [place] [address] Keenan ONOFRE,PHD Not Available [facility] [address] [place], [address], 02/06/2019 17:50:20 12/20/1912/11/2018 CT, abdom en + pelvi s, w/o contr ast No observ ation record ed. [email or web address] [facility] (Radiology) [address] , [place], [address], 12/20/2018 10:40:51 01/15/20 19 01/14/2019 XR, abdom en, 1 view No observ ation record ed. [email or web address] [facility] (Main) [address] , [place], [address], 01/14/2019 08:41:08 Result Notes None recorded. Problems No Known Problems Procedures Surgical History Date Name Laterality Status Provider Name and Address Organization Details Recorded Time 9 EXTRA CORPOREAL SHOCKWAVE LITHOTRIPSY (SURG) completed Gisel Meneses [facility] 01/14/2019 15:39:18 9 EXTRA CORPOREAL SHOCKWAVE LITHOTRIPSY (SURG) completed Jevon Lyons [facility] 01/21/2019 12:26:34 5 procedure on shoulder completed [facility] 12/24/2018 15:05:42 Thyroid Surgery completed [facility] 12/24/2018 15:05:31 Imaging Results None recorded. Procedure Notes None recorded. Medical Equipment None Reported. Allergies Allergen ID Allergen Name Allergen Category Reaction Reaction Severity Criticality Documentation Date Start Date Code Code System Note Provider Name and Address Organization Details Recorded Time 968219 acetamino phen / hydrocodo ne medicatio n Not available Not available Not available 12/24/2018 04524 2 RxNorm Katy [facility] 9 15:04:32 077235 ciproflox acin medicatio n Not available Not available Not available 02/15/2019 2551 RxNorm Brenda Antony [facility] 9 14:10:20 Medications Name Sig Start Date Stop Date Status Note LastModified by Organization Details LastModified Time tramadol 50 mg tablet active Not Available Not Available Not Available propranolol 20 mg tablet active Not Available Not Available No t Available fenofibrate 160 mg tablet active Not Available Not Availabl e Not Available Vitals Date Recorded Body height Body mass index (BMI) Body weight Heart rate Systolic And Diastolic Provider Name and Address Organization Details Last Updated DateTime 12/24/2018 182.88 cm 27.1 kg/m2 02941.47 g 68 /min 124/66 mm[Hg] Katy Peña [facility] 12/24/2018 15:04:05 Date Recorded Body height Body mass index (BMI) Body weight Provider Name and Address Organization Details Last Updated DateTime 01/31/2019 182.88 cm 27.1 kg/m2 22184.47 g Deseriee [place] [facility] 01/31/2019 12:55:35 Social History Question Answer Notes LastModified by [employer] Details LastModified Time Tobacco Smoking Status Former Smoker Katy Peña [facility] 12/24/2018 15:05:01 How Much Tobacco Do You Chew? None Information not available 12/24/2018 When Did You Quit Smoking? 16+yearssince lastcigarette Information not available 12/24/2018 Marital Status Informatio n not available 12/24/2018 What Was The Date Of Your Most Recent Tobacco Screening? 12/24/2018 Information n ot available 07/23/2019 Sex: Unknown Functional Status Question Answer Note LastModified by Organ[employer] Details LastModified Time What is your level of alcohol consumption? 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 Family History Relationship Description Onset Age of this Age Resolved Age Notes LastModified by Organization Details LastModified Time Maternal Uncle Family history of malignant neoplasm Not available 2018 15:04:52 Medical History Condition Response Kidney Stones Y Hypertension Y High Cholesterol Y Past Encounters Encounter ID Performer Location Encounter Start Date Encounter Closed Date Diagnosis/Indication Diagnosis SNOMED-CT Code Diagnosis ICD10 Code Diagnosis Note [id number] JOHN ASHLEY MD [facility] [address] [place] [address] 12/24/2018 13:50:25 12/24/2018 15:05:15 Kidney stone 94337540 N20.0 [id number] JOHN ASHLEY MD [facility] [address] [facility] [place] [address] 01/31/2019 12:55:05 02/18/2019 14:28:11 Kidney stone 62381263 N20.0 Health Concerns Section Related Observation LastModified by Organization Detai ls LastModified Time None Recorded Concern Status LastModified by Organization Details LastModified Time None Recorded Advance Directives Directive None Recorded Payers Insurance Date Sequence Insurance Name Policy Number Policy Rojas Covered Member ID Rojas Member ID Guarantor Name 04/29/2020 1 [employer] (POS) Juan Long [id number] Juancierra Hinds Notes Date Note Type Note Provider Name and Address Organization Details Recorded Time 12/24/2018 text/html 38-year-old male in the office for consultation and evaluation of urolithiasis. CT scan from 12/11/18 showed a 3 mm right UVJ stone which he has passed and a 1.1 cm right renal pelvis stone. He does have history of urolithiasis previously. He has been able to pass all previous stones. He has pain, uncomfortable in the right back. No aggravating or alleviating symptoms. He voids 2-3 times daily without nocturia, hesitancy, urgency, hematuria, dysuria. JOHN ASHLEY MD [address] [place] [address], [address], [facility] 01/06/2019 07:59:25 01/31/2019 text/html 39-year-old male in the office for follow-up evaluation of right extracorporeal shockwave lithotripsy from 01/14/19. He denies flank pain or abdominal pain. He has passed multiple small stone fragments. No hematuria or dysuria. JOHN ASHLEY MD [address] [place] [address], [address], [facility] 02/17/2019 18:14:13
== END ==
LOC: SL 06:46
PROVIDERS: PCP Specialist; Visit Provider Specialist
DX: Z95.818 Presence of other cardiac implants and grafts (principal); R55 Syncope and collapse; G47.33 Obstructive sleep apnea (adult) (pediatric)
CPT/HCPCS: G0399